=== PATIENT | female | born 1970 | race African-American/Black ===

== ENCOUNTER 2016-12-25 22:10 | Emergency (ER) | payer OTHER ==
[~2016-12-25] VITALS: Ht 167.6 cm; Wt 96.0 kg
[2016-12-26 04:05] VITALS: BP 145/88
== END 2016-12-26 04:39 | disposition home or self-care (01) ==
LOC: ER 22:30
DX: S46.812A Strain of other muscles, fascia and tendons at shoulder and upper arm level, left arm, initial encounter (principal); W01.0XXA Fall on same level from slipping, tripping and stumbling without subsequent striking against object, initial encounter; Y93.01 Activity, walking, marching and hiking; Y92.830 Public park as the place of occurrence of the external cause; I10 Essential (primary) hypertension; Z90.49 Acquired absence of other specified parts of digestive tract
CPT/HCPCS: 73030; 73060; 81025; 99284; Z7610

== ENCOUNTER 2017-02-21 18:40 | Emergency (ER) | payer OTHER ==
[~2017-02-21] VITALS: Ht 167.6 cm; Wt 100.0 kg
[2017-02-21] MEDS ORDERED: ONDANSETRON 4MG ODT PO PRN (22:30)
[2017-02-21] MEDS ORDERED: KETOROLAC 30MG/ML VIAL IM ONE (22:30)
[2017-02-22 01:56] VITALS: BP 156/99
== END 2017-02-22 02:26 | disposition home or self-care (01) ==
LOC: ER 20:59
DX: M79.651 Pain in right thigh (principal); I10 Essential (primary) hypertension; F17.200 Nicotine dependence, unspecified, uncomplicated; Z90.49 Acquired absence of other specified parts of digestive tract
CPT/HCPCS: 73502; 81025; 96372; 99284; J1885; Q0162; Z7610